=== PATIENT | male | born 1935 | race Caucasian/White ===

== ENCOUNTER 2016-11-29 08:48 | Emergency (ER) | payer MEDICARE, OTHER ==
[~2016-11-29 08:48] MED LIST: ACET1TAB42 PO; ALBU8.5H2 IH; ASPI-628 PO; Albuterol/Ipratropium NEB; Amoxicillin/Clavulanate K PO; GLIP-176 PO; INSU100I16 SUBQ; INSU100I18 SUBQ; LEVO75TA4 PO; LISI-567 PO; LOVA20TA PO; METO25TA6 PO; NITR0.4T6 SL; OXYB5TAB10 PO; OXYC5TAB72 PO; RANI150C4 PO; ZIT250 PO
[2016-11-29 08:51] VITALS: BP 163/76; PULSE 66; RESP 18; O2SAT 97
--- NOTE | 2016-11-29 09:02 | ED.REPORT ---
HPI-Extremity Problem Lower Date of Service Nov 29, 2016 ED Provider: Dr. Bowen Pt is a 81 y/o male w/ a hx of IDDM, HTN, HLD, peripheral neuropathy, presenting to the ED with his c/o left big toenail issue onset 5 days ago. He states his left big toenail has been loose for the past 5 days and suspects that he may have caught it on something or stubbed it but he can't remember any trauma.He does relate that he has advanced peripheral neuropathy so he can't feel his feet very well. He sees nuclear medical tech Dr. Samaniego infrequently. Apparently the last time this happened he became septic. He denies any other symptoms. Nursing Notes Stated Complaint: LEFT BIG TOE ISSUE Chief Complaint: Extremity Trauma Nursing Notes Reviewed: Yes Allergies: Coded Allergies: No Known Allergies (Unverified Allergy, Unknown, 02/15/14) Scheduled ([Amoxicillin/Clavulanate K]) 1 TAB TABLET 1 TAB PO BID Aspirin (Aspir 81) 81 Mg Tablet.dr 81 MG PO DAILY Azithromycin (Zithromax) 250 Mg Tablet 500 MG PO DAILY Glipizide ER (Glipizide XL) 10 Mg Tab.er.24 10 MG PO DAILY Insulin Lispro (HumaLOG U100 Insulin Pen) 100 Unit/1 Ml Insuln.pen 20 UNIT SUBQ BID Blood Sugar Lispro Correction <151 0 units 151-175 1 unit 176-200 2 units 201-225 3 units 226-250 4 units 251-275 5 units 276-300 6 units 301-325 7 units 326-350 8 units 351-375 9 units 376-400 10 units >400 12 units Check blood sugars before meals and at bedtime. Use correction factor only before meals. Insulin NPL/Insulin Lispro (HumaLOG 75/25 U100 Insulin Kwikpen) 100 Unit/1 Ml Insuln.pen 20 UNIT SUBQ BID-INSULIN Levothyroxine (Levothyroxine) 75 Mcg Tablet 75 MCG PO DAILY Lisinopril (Lisinopril) 20 Mg Tablet 20 MG PO HS Lovastatin (Lovastatin) 20 Mg Tablet 40 MG PO HS Metoprolol Tartrate (Metoprolol Tartrate) 25 Mg Tablet 37.5 MG PO BID Oxybutynin Chloride (Oxybutynin Chloride) 5 Mg Tablet 5 MG PO BID Ranitidine (Ranitidine) 150 Mg Capsule 150 MG PO DAILY Scheduled PRN ([Albuterol/Ipratropium]) 3 ML NEBU 3 ML NEB Q4H PRN PRN For Shortness of Breath Acetaminophen/Codeine 300-30mg (Acetaminophen/Codeine 300-30mg) 1 Each Tablet 1 EACH PO Q4 PRN PRN For Pain Albuterol HFA (Proair HFA) 8.5 Gm Hfa.aer.ad 2 PUFFS IH Q6 PRN PRN For Shortness of Breath oxyCODONE (oxyCODONE) 5 Mg Tablet 5 MG PO Q8-12H PRN PRN For Pain Miscellaneous Medications Nitroglycerin SL (Nitroglycerin SL) 0.4 Mg Tab.subl 0.4 MG SL General Time Seen by MD: 09:02 Chief Complaint Toe injury left 1 Hx Obtained From: Patient Arrived By: Walk-in Onset Occurred: 5 days ago Symptom Duration: Since onset Severity: Current: No pain currently Severity: Maximum: No pain Similar Sx Previous: Yes Past Medical History Past Medical History Pneumonia and UTI in January 2014 Spinal stenosis Emphysema Peripheral neuropathy Reports: COPD, Cancer, Coronary artery disease, Diabetes mellitus, GERD, Hyperlipidemia, Hypertension Past Surgical History Stent placement 2010 Prostate surgery at 59 years of age. Reports: Prostatectomy Family History Mom at 84 of lung cancer Dad at 59 complications of diabetes. Smoking History Former Smoker Social History Alcohol Use: "Social" Drug Use: Denies drug use Other Social History: Ambulatory Status Independent Review of Systems Review of Systems Note: +toenail problem Constitutional: Denies: Chills, Fever Complete sys rev & neg: except as marked. GI: Denies: Nausea, Vomiting Physical Exam Initial Vital Signs Vital Signs (First) Date Time Temp Pulse Resp B/P Pulse Ox O2 Delivery O2 Flow Rate FiO2 11/29/16 08:51 36.4 66 18 163/76 97 Initial VS: Reviewed, Vital signs abnormal Head / Eyes: Atraumatic, Normocephalic ENT: Mucous membranes moist, Conjunctiva normal, No scleral icterus Neck: Supple, Full range of motion Respiratory: Breath sounds normal, Clear to auscultation, No respiratory distress Cardiovascular: Regular rate & rhythm, Heart sounds normal, Intact distal pulses Abdomen / GI: Soft, Non-tender Skin: Warm, Dry, No cyanosis Neurologic: Alert, Oriented, Nonfocal Psychiatric: Mood/affect normal, Behavior normal, Normal thought content Lower Extremity / Pelvis / MS: No deformity, Neurologic intact, Vascular intact Tib/fib normal Ankle / Foot: No deformity L great toe: Mildly erythematous - not past interphalangeal joint proximally Decreased cap refill Nail is completely loose over a bloody bed No purulent drainage General/Constitutional: Awake, Alert, No acute distress, Well appearing, Cooperative, Not toxic appearing Re-Eval/Medical Decision Source of Hx: Old records Re-Evaluation/Progress : Time of Eval: 10:47 Re-Evaluation/Progress Note: Pt rechecked. Toe covered in ED. Informed pt of plan for discharge. Pt understands and agrees with plan for discharge. F/U instructions and RTER warnings given. All questions addressed. Consultation : Referral / Consult Name: Walter Salas DPM Call Returned at: 09:24 Primary Care Provider: Will see in office, Agrees with eval, Agrees with plan Note: Case discussed with podiatry. Recommends we tape the nail down and send the patient to their clinic. Counseled Regarding: Diagnosis, Need for follow-up, When/why to return to ED Discharge & Departure Impression: Primary Impression: Toenail avulsion Encounter type: initial encounter Qualified Code: S91.209A - Unspecified open wound of unspecified toe(s) with damage to nail, initial encounter Disposition: Home Discharge Condition All VS Reviewed: Yes Condition: Stable Additional Instructions: Go directly to [facility] podiatry. They will attend to your toe there. Referrals: Baudilio Ellison MD (PCP) Adarsh Samaniego DPM Scribe Attestation Portions of this note were transcribed by Donnie Chaudhry. I, Dr. Bowen, personally performed the history, physical exam and medical decision-making; I reviewed and confirmed the accuracy of the information in the transcribed note. copies to: Adarsh Samaniego DPM; Baudilio Ellison MD, Kirk H MD Nov 29, 2016 09:02 DONNIE CHAUDHRY Nov 29, 2016 09:07
== END 2016-11-29 10:56 | disposition home or self-care (01) ==
LOC: SED 08:48
DX: S91.209A Unspecified open wound of unspecified toe(s) with damage to nail, initial encounter (principal); X58.XXXA Exposure to other specified factors, initial encounter; Y93.9 Activity, unspecified; Y92.9 Unspecified place or not applicable; Y99.9 Unspecified external cause status; E11.40 Type 2 diabetes mellitus with diabetic neuropathy, unspecified; I10 Essential (primary) hypertension; I25.10 Atherosclerotic heart disease of native coronary artery without angina pectoris; Z87.891 Personal history of nicotine dependence; E78.5 Hyperlipidemia, unspecified; Z79.82 Long term (current) use of aspirin; Z85.9 Personal history of malignant neoplasm, unspecified; Z79.4 Long term (current) use of insulin